=== PATIENT | male | born 1980 | race Caucasian/White ===

== ENCOUNTER 2021-02-15 19:54 | Emergency (ER) | payer OTHER ==
[~2021-02-15] VITALS: Ht 175.3 cm; Wt 180.5 kg
[2021-02-15 20:52] LABS: BASOPHILS # (AUTO) 0.2 K/uL (0.0-8.0); BASOPHILS % (AUTO) 0.9 % (0.0-2.0); EOSINOPHILS # (AUTO) 0.2 K/uL (0.0-0.7); EOSINOPHILS % (AUTO) 1.5 % (0.0-7.0); HEMATOCRIT 40.7 % (36.7-47.1); HEMOGLOBIN 13.2 g/dL (12.5-16.3); LYMPHOCYTES # (AUTO) 2.7 K/uL (20.0-40.0); LYMPHOCYTES % (AUTO) 16.2 % (20.5-51.5); MEAN CORPUSCULAR HEMOGLOBIN 29.3 uug (23.8-33.4); MEAN CORPUSCULAR HGB CONC 33 g/dL (32.5-36.3); MEAN CORPUSCULAR VOLUME 90.1 fL (73.0-96.2); MONOCYTES # (AUTO) 1.5 K/uL (2.0-10.0); NEUTROPHILS # (AUTO) 11.9 K/uL (1.8-8.9); NEUTROPHILS % (AUTO) 72.4 % (38.5-71.5); PLATELET COUNT (AUTO) 267 K/uL (152-348); RED BLOOD CELL COUNT(AUTO) 4.51 MIL/uL (4.06-5.63); WHITE BLOOD COUNT (AUTO) 16.4 K/uL (3.6-10.2)
[2021-02-15 20:59] LABS: CREATININE 1.2 mg/dL (0.6-1.3); POTASSIUM 4.1 mmol/L (3.5-5.1)
[2021-02-15] MEDS ORDERED: IBUPROFEN 600 MG TABLET PO ONE (21:00)
[2021-02-15 21:12] LABS: BILIRUBIN,DIRECT 0.1 mg/dL (0.0-0.2); BILIRUBIN,TOTAL 0.3 mg/dL (0.2-1.0); TOTAL PROTEIN, SERUM 7.8 g/dL (6.4-8.2)
[2021-02-15] MEDS ORDERED: IBUPROFEN 600 MG TABLET ONE (21:17)
--- NOTE | 2021-02-15 21:27 | NUR ---
lab called david , negative for covid
[2021-02-15] MEDS ORDERED: VANCOMYCIN IV 2,000 MG in IV DEXTROSE 5% 250 ML IV ONE (21:30)
--- NOTE | 2021-02-15 22:00 | NUR ---
venous duplex of lower extremities being done
[2021-02-15] MEDS ORDERED: VANCOMYCIN 1000 MG VIAL ONE (22:13)
--- NOTE | 2021-02-15 22:38 | NUR ---
elle duplex done , tech notified doctor of results
[2021-02-15] MEDS ORDERED: CEPH500T PO (22:44)
[2021-02-15] MEDS ORDERED: SULF1TAB48 PO (22:44)
--- NOTE | 2021-02-15 23:59 | NUR ---
awake oriented , iv dc'd on right wrist , no bleeding , ambulatory picked up by family member
== END 2021-02-16 | disposition home or self-care (01) ==
LOC: ER 19:54
DX: L03.116 Cellulitis of left lower limb (principal); R60.0 Localized edema; E66.01 Morbid (severe) obesity due to excess calories; Z68.43 Body mass index [BMI] 50.0-59.9, adult; Z20.822 Contact with and (suspected) exposure to COVID-19; D72.829 Elevated white blood cell count, unspecified; R94.31 Abnormal electrocardiogram [ECG] [EKG]; R00.0 Tachycardia, unspecified; I10 Essential (primary) hypertension
CPT/HCPCS: 36415; 71045; 73630; 80048; 80076; 83605; 83880; 84484; 85025; 85730; 87040 ×2; 87426; 93005; 93970; 96365; 96366; 99285; J3370; J7060; 70030-TC; A4663